=== PATIENT | female | born 1935 | race Caucasian/White ===

== ENCOUNTER → 2024-07-15 10:02 | Outpatient (REF) | payer OTHER, SELFPAY | LOC: HWWDC 10:02 | PROVIDERS: ATTENDING PHYSICIAN Family Medicine | DX: Z12.31 Encounter for screening mammogram for malignant neoplasm of breast (principal) | CPT/HCPCS: 77063; 77067 ==

== ENCOUNTER 2024-11-25 09:14 | Observation (INO) | payer OTHER, SELFPAY ==
[2024-11-25] VITALS (16 sets, daily range): BP systolic 132–184; BP diastolic 79–107; PULSE 80–132; O2SAT 96–97; BMI 34.7
[2024-11-25 00:45] LABS: % Basophils 0.7 % (0-2); % Eosinophils 3.4 % (0-6); % Immature Granulocytes 0.2 % (0-0.5); % Lymphocytes 32.9 % (20.5-51.1); % Monocytes 9.7 % (1.7-9.3); % Neutrophils 53.1 % (42.2-75.2); Absolute Basophils 0.1 10^3/uL (0-0.2); Absolute Eosinophils 0.3 10^3/uL (0-0.7); Absolute Lymphocytes 2.9 10^3/uL (1.2-3.4); Absolute Monocytes 0.9 10^3/uL (0.1-0.6); Absolute Neutrophils 4.6 10^3/uL (1.4-6.5); Hematocrit 40.2 % (37.0-47.0); Hemoglobin 13.4 g/dL (12.0-16.0); Mean Corp Hgb Conc. 33.3 g/dL (33.0-37.0); Mean Corpuscular Hgb 28.8 pg (27.0-31.0); Mean Corpuscular Volume 86.5 fL (81.0-99.0); Mean Platelet Volume 10.9 fL (7.4-10.4); Nucleated Red Blood Cells % 0 %; Platelet Count 302 10^3/uL (130-400); Red Blood Cell Count 4.65 10^6/uL (4.20-5.40); Red Cell Dist. Width 13.6 % (11.5-14.5); White Blood Cell Count 8.7 10^3/uL (4.8-10.8)
[2024-11-25 00:56] LABS: ALT (SGPT) 23 U/L (0-35); AST (SGOT) 23 U/L (14-36); Albumin 3.9 g/dl (3.5-5.0); Alkaline Phosphatase 70 U/L (38-126); Blood Urea Nitrogen 13 mg/dl (7-17); Calcium 9.1 mg/dl (8.4-10.2); Carbon Dioxide 26 mmol/L (22-30); Chloride 100 mmol/L (98-107); Estimated Creatinine Clearance 78 ml/min; Glucose 164 mg/dl (70-99); Sodium 132 mmol/L (135-145); Total Bilirubin 0.4 mg/dl (0.2-1.3); eGFR > 60.00
[2024-11-25 01:00] LABS: COVID-19 Antigen Negative (Negative)
--- NOTE | 2024-11-25 04:17 | ED.GENMED ---
History of Present Illness
General
Chief Complaint: Dizziness
Source: patient, spouse and family
Exam Limitations: none
Time Seen by Provider: 11/25/24 04:08
Nursing documentation reviewed up to this point in time: agreed with
History of Present Illness
History of Present Illness:
89-year-old female presents emergency department complaining of feeling sick and dizzy for the past week. She feels the room spinning and states she just feels sick.
Past History
Past History
ED Past Medical History: HTN, Hypothyroidism and Psychiatric
ED Past Surgical History: Cholecystectomy and Gynecological
Social History
Tobacco: Non-smoker
Alcohol: None
Drug: None
Personal:
Living: with family
Review of Systems
Review of Systems
Allergies reviewed?: Yes
All Other Systems: Not applicable
Constitutional: Reports no symptoms
EENT: Reports no symptoms
Respiratory: Reports no symptoms
Cardiac: Reports no symptoms
ABD/GI: Reports nausea and vomiting
: Reports no symptoms
Musculoskeletal: Reports no symptoms
Skin: Reports no symptoms
Neurological: Reports dizzy
Endocrine: Reports no symptoms
Hematologic/Lymphatic: Reports no symptoms
Psychiatric: Reports no symptoms
Phy Exam
Physical Exam
Physical Exam:
Physical Exam
General: Appears uncomfortable
Neck: supple. no meningeal signs. normal posterior pharynx
Heart: s1/s2 regular rate and rhythm, no murmur. equal radial
pulses.
HEENT: Pupils equal round reactive to light, EOMI
Lungs: no acute respiratory distress. clear bilaterally
Abdomen: normal bowel sounds. not tender. no CVAT
Neuro: alert and oriented. no focal neurological deficits cranial nerves II through XII intact
Skin: no rash
Psychiatric: well kept. interactive and cooperative
Extremities: no edema. no calf tenderness. negative homans. good distal pulses
Course
Orders/Labs/Results
Orders:
Orders
11/25/24
Electrocardiogram (*1) Stat
Reason for Study: Chest Pain
Comment: DONE
11/25/24 00:26
CMP [Comprehensive Metabolic Panel] Urgent
COVID-19 Antigen Urgent
Source: Nasal Swab
Complete Blood Count/With Diff Urgent
Influenza A+B Rapid Molecular Urgent
COLE Source: Nasal Swab
Specimen Description:
11/25/24 04:09
Vital Signs- Treatment ONCE
Frequency: Hourly
Comment: temperature
11/25/24 04:16
CT Head W/o Iv Contrast Urgent
Comment:
Reason For Exam: dizziness
EKG- Treatment ONCE
Meclizine [Antivert] 25 mg PO NOW STA
11/25/24 04:17
Electrocardiogram (*1) Urgent
Abnormal Lab Results
11/25/24
00:26
MPV 10.9 H fL
(7.4-10.4)
Absolute Monos (auto) 0.9 H 10^3/uL
(0.1-0.6)
Monocytes % 9.7 H %
(1.7-9.3)
Sodium 132 L mmol/L
(135-145)
Glucose 164 H mg/dl
(70-99)
11/25/24 00:26
11/25/24 00:26
Vital Signs
Initial and Last Documented VS:
Initial Vital Signs
Temp Pulse Resp BP Pulse Ox
97.6 F 94 16 184/91 97
11/25/24 00:06 11/25/24 00:06 11/25/24 00:06 11/25/24 00:06 11/25/24 00:06
Last Documented Vital Signs
Temp Pulse Resp BP Pulse Ox
97.6 F 88 12 145/79 97
11/25/24 00:06 11/25/24 04:30 11/25/24 04:30 11/25/24 03:00 11/25/24 04:30
MDM/Problems Addressed
Differential Diagnosis Includes:
Posterior CVA, vertigo, dysrhythmia
MDM/Problems Addressed:
89-year-old female with persistent dizziness, unable to ambulate. Admit to hospitalist for further evaluation.
*Radiology
Radiology exam reviewed: radiology read reviewed (CT head no acute 5)
*Pulse Oximetry
Patient hypoxic: no
*EKG
Interpreted by ED Provider?: Yes
EKG Intrepretation Date: 11/25/24
EKG Intrepretation Time: 04:33
Interpretation: normal
Comparison EKG: changes noted
Heart Rate: 87
Rate: normal
Rhythm: sinus
[place]: normal axis
Interval: normal interval
QRS Pattern: normal QRS
Ischemia: no ischemia
*Rug Designer Interpretation
Rate: normal
Interpretation: normal
Heart Rate: 88
Rhythm: sinus
*Critical Care Note
Total Time (30-74mins, 75-104mins- exclusive of procedures): Not Applicable
Patient Management
Social determinants of health affecting care: Living situation and Strong social support
Discussion with other providers: Hospitalist
Escalation/DeEscalation of care consider admission/obs:
admit indicated
ED Attending Note
-
Portions of this chart may have been created with voice recognition software.� Occasional wrong word or��sound alike� substitutions may have occurred due to the inherent limitations of voice recognition software.
Discharge Plan
Departure
Patient Disposition: Admit
Date of Disposition: 11/25/24
Time of Disposition: 06:45
Admit to: Telemetry
Presentation/result/management discussed w/ accepting MD/DO: Hospitalist
Patient with high blood pressure during this ER visit?: Yes
Condition: Fair
Discharge Problem:
Dizziness, Ambulatory dysfunction
Prescriptions:
No Action
levothyroxine 25 MCG tablet
PO DAILY
sertraline 25 MG tablet
50 mg PO DAILY
Referrals:
Rikki Thompson, DO [Family Provider] -
Interventions
Interventions:
*Risk Screen - Suicide Last Done: 11/25/24 00:06
*General Assessment Last Done: 11/25/24 00:06
*Neglect/Abuse Screening Last Done: 11/25/24 00:06
*ED- Fall Risk Assessment Last Done: 11/25/24 00:06
*ED COVID-19 Vaccine History Last Done: 11/25/24 00:06
ED- Neurological Assessment Last Done: 11/25/24 00:15
ED Swallowing Screen Last Done: 11/25/24 04:15
Discharge Date and Time
Print Language: GUINEAN
[2024-11-25] MEDS: ANTIVERT 25 MG PO (04:24)
--- NOTE | 2024-11-25 08:01 | PHANOTE ---
med rec note- patient does not know her medication and barely knows where she is. patient has family on file, left message for spouse to call back, patient pharmacy is current and patient ecw is old from 2022
[2024-11-25] MEDS: NSS 250 IV (08:10)
--- NOTE | 2024-11-25 08:11 | HPS.HSE ---
Family Physician
-
Family Physician: Rikki Thompson
Chief Complaint
-
vertigo
History of Present Illness
89yo F with PMHx of anxiety, DM, hypothyroidism, frequent headaches and neck pain (goes to chiropractor for that) came with worsening dizziness started 1 week before admisison and progressed to the point that patient cannot walk due to significant
symptoms. They appear mostly during position change with intermittent vertigo, not assosiated with ear pain, fullness or noise. Had mild cough 1 week ago after her was with a cold. No other significant symptoms reported.
Medical History
Past Medical History
Past Medical History: Reports Other (see HPI)
Past Surgical History: Reports None
Social History
Tobacco: Non-smoker
Alcohol: None
Drug: None
Family History
Family History: Not pertinent
Allergies / Home Medications
Allergies reflects when Allergies were last updated in [facility].
Home Medications with original date entered in [facility]
Allergy/Medication List:
Allergies
Allergy/AdvReac Type Severity Reaction Status Date / Time
cefprozil Allergy Unknown Verified 11/25/24 07:29
Cephalosporins Allergy Unknown Verified 11/25/24 07:29
erythromycin base Allergy Unknown Verified 11/25/24 07:29
guaifenesin Allergy Unknown Verified 11/25/24 07:29
phenylephrine Allergy Unknown Verified 11/25/24 07:29
phenylpropanolamine Allergy Unknown Verified 11/25/24 07:29
Sympathomimetic A Allergy Unknown Verified 11/25/24 07:29
*RETIRED-04/24/12
NOT.[id number] - Not Allergy Unknown Uncoded 11/25/24 07:29
Converted 5. See Text.
Home Medications
ergocalciferol (vitamin D2) 1,250 mcg (50,000 unit) capsule 1,250 mcg PO QWEEK 11/25/24
levothyroxine 25 mcg tablet (Synthroid) 25 mcg PO DAILY 11/25/24
sertraline 100 mg tablet 100 mg PO DAILY 11/25/24
Review of Systems
-
History Source: Patient
A 12 point ROS was completed and negative except as noted: Yes
Neurological: Reports Dizzy
Physical Exam
Vital Signs
Vital Signs
Temp Pulse Resp BP Pulse Ox
97.1 F 86 16 163/86 97
11/25/24 07:17 11/25/24 07:17 11/25/24 07:17 11/25/24 07:17 11/25/24 07:17
Physical Exam
General: Well Developed, Well Nourished and No Apparent Distress
HEENT: NormoCephalic, Anicteric and Moist mucous membranes
Respiratory: Clear; No Wheezes, Rales or Rhonchi
Cardiac: S1/S2 and Regular Rhythm; No Murmur
GI: Soft, Non Tender and Non Distended
Rectal: Brown
Genito-urinary: No costovertebral tender
Musculoskeletal: No Clubbing, No Cyanosis and No Edema
Skin: Warm
Neuro: Awake, Alert, Oriented and AO x 3
Psych: Calm and Apparent Dementia
Laboratory Results
-
11/25/24 00:26
11/25/24 00:26
Laboratory Results
Total Bilirubin 0.4 mg/dl (0.2-1.3) 11/25/24 00:26
AST 23 U/L (14-36) 11/25/24 00:26
ALT 23 U/L (0-35) 11/25/24 00:26
Alkaline Phosphatase 70 U/L (38-126) 11/25/24 00:26
Data Reviewed
-
CT Scan: Report Reviewed by me
Lab Data: Labs Reviewed by me
Impression/Plan
-
A/P:
#Dizziness, vertigo
r/o TIA/CVA/BPPV
Not a candidate for urgent intervention due to longevity of the symptoms
ASA, statin
Permissable hypertension, use labetalol for BP >180/105
Accuchecks and keep blood glucose in 140-180 range
CTA head/neck, MRI brain
check ortho VS
PT/OT
check UA
telemetry
Neurology eval
Meclizine
EKG SR without ST changes or TWI
#Recent acute URI
COVID-19 and Influenza PCR neg
check Chest XR
#Sinusitis
Head CT with severe maxillary sinusitis
check Procal, if elevated - start Abx, otherwise might beneft from steroids
#6 mm chronic lacunar infarct in the left thalamus
ASA. statin
#DM type 2 with unknown complications
Accucheks, Insulin SS, DM diet
#Anxiety d/o
#Hypothyroidism
check TSH
cont home meds
DVT ppx SCDs
Full code
I have spent at least 78min reviewing chart, test results, communication with consultantants and providing direct patient care
[2024-11-25 08:27] LABS: Urine Albumin Negative (Neg - Trace); Urine Bilirubin Negative (Negative); Urine Character Clear (Clear); Urine Glucose Negative (Negative); Urine Ketone Negative (Negative); Urine Leukocyte 1+ (Negative); Urine Nitrite Negative (Negative); Urine Occult Blood 1+ (Negative); Urine Urobilinogen Negative (Neg - 1+)
[2024-11-25 08:28] LABS: Urine Color Straw
[2024-11-25] MEDS: ASPIRIN 325 MG PO (08:31)
[2024-11-25 08:38] LABS: Urine Squamous Cell >30 /LPF (Few)
[2024-11-25 08:39] LABS: Urine Bacteria Few (Negative); Urine Red Blood Cell 0-2 /HPF (0-2); Urine White Cell 0-2 /HPF (0-5)
--- NOTE | 2024-11-25 10:15 | CON.NEURO4 ---
Addendum entered and electronically signed by Dimitrios Strange MD 11/25/24 14:17:
Studies reviewed.
I have personally examined the patient. I reviewed and agree with the WRAPPER OPERATOR's Note.
My addenda:
Awake, alert, interactive. No acute distress.
Speech intact. Patient is nearly obsessed regarding obtaining food, easily distracted
Follows 2-step requests w/o difficulty. No tremor.
Extra-ocular movements grossly intact.
Facial movements full and symmetric. Hearing intact to normal conversational volume.
Normal UE movements bilaterally.
Neck: full ROM.
Chest: no dyspnea
Heart: no JVD
Ext: (-) Clubbing, (-) Cyanosis, (-) Edema
IMPRESSIONS/RECOMMENDATIONS:
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
Check orthostatic blood pressures
Therapy evaluations and treatment
Would continue the patient currently on aspirin for now
Follow lipid profile
Continue medications for control of her depression
We will follow MRI of brain results
D/W patient
Will continue to follow patient.
Original Note:
Documented by User: Darya Beck NP 11/25/24 11:33
Consultation - Neurology 4
-
CONSULTING PHYSICIAN: Dimitrios Strange MD
REFERRING PHYSICIAN: Hospitalists/Dr. Moralez
DICTATED BY: JAVIER Stubbs
DATE/TIME OF REQUEST: 11/25/24
DATE/TIME OF CONSULTATION: 11/25/24
Reason for Consultation: Dizziness
History of Present Illness:
This is a 89-year-old right-handed female who has presented to the hospital on 11/25/24 with report of dizziness starting one week ago. Patient has been previously followed by our Neurology service as an outpatient for cognitive impairment.
Cognitive workup consisting of Neurotrax testing was suggestive of a pseudodementia due to depression vs mild cognitive impairment. She was encouraged to increase her sertraline dose and take donepezil in the past but refused. She is now followed by
a neurologist at [facility]. Patient is currently very upset that she has not had anything to eat since she came to the hospital overnight, and is very limited with providing answers to questions so most of this HPI is obtained from medical
records. Patient has had a cough and her has had a cold for one week. She started feeling dizzy about one week ago and this has progressed now to the point of not being able to walk. She is unable to describe the dizzy sensation but notes
that it mostly happens when she tries to turn her head or move, and it just feels 'awful.' She denies any headache, vision changes, speech/swallow difficulty, tinnitus, ear fullness/pain, vomiting, numbness, focal weakness, chest pain, palpitations,
and shortness of breath. CT Head was obtained on arrival and demonstrates an old left thalamic infarct that was not on previous imaging from 2019. She was not taking any blood thinning medications.
Past Medical History: HTN, hypothyroidism, NIDDM, headache, chronic neck pain, anxiety, depression
Surgical History: Cholecystectomy, tonsillectomy, b/l cataract resection, hysterectomy
Family History: Reviewed and noncontributory.
Social History: Denies tobacco, alcohol, and illicit drug use.
Allergies: See below.
Home Medications: See below.
Review of Symptoms:
Patient denies any fever, headache, chest pain, shortness of breath, GI or symptoms.
�Per the HPI.�All systems are reviewed negative except above.
Physical Exam:
The patient is afebrile, abdomen is nondistended, breathing is unlabored, skin is warm and dry, no edema.
NIH Stroke Scale:
I performed the NIH stroke scale on the patient on 11/25/24 at 1015. The patient scored 0 points on the NIH stroke scale assessment, which were assigned as follows: See below.
Neurologic Examination:
The patient is awake, alert and oriented x 3. She is able to follow commands and answer some questions appropriately. There is no aphasia or dysarthria. On cranial nerve assessment, pupils are 3 mm bilateral, round and reactive to light and
accommodation. Visual ramos are full. Extraocular movements are intact. No nystagmus noted. Facial sensations are intact and bilaterally symmetrical, there is no facial asymmetry. Hearing is diminished bilaterally to finger rub. Tongue palate and
uvula are midline. Sternocleidomastoid strengths are full bilaterally. Motor strengths are 5/5 bilateral upper and lower extremities on medical research [place] scale. There is no drift or involuntary movement noted. Deep tendon reflexes are 1+
bilateral upper and lower extremities and Babinski is absent bilaterally. There was no extinction noted on double simultaneous stimulation. Coordination is intact by finger to nose bilaterally.
Lab Results: See below.
Neuro Imaging:
1. CT Head 11/25/24: SEVERE ACUTE LEFT MAXILLARY SINUSITIS. Severe white matter leukoaraiosis in both cerebral hemispheres. 6 mm chronic lacunar infarct in the left thalamus. Moderate bilateral temporal lobe volume loss.
2. CTA Head/Neck 11/25/24: No CTA evidence for stenosis or occlusion in either internal carotid artery. Severe tortuosity of the mid cervical segment of the left internal carotid artery with 2 acute angle turns. Severe tortuosity of the proximal
right vertebral artery. 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 No CTA evidence for vertebral artery stenosis or occlusion. Moderate to severe discogenic degenerative disease at C3/C4, C4/C5, C5/C6, and C6/C7.
SEVERE ACUTE LEFT MAXILLARY SINUSITIS. Severe white matter leukoaraiosis in both cerebral hemispheres. Moderate bilateral temporal lobe volume loss. Moderate hypoplasia of the distal cervical segment of the right vertebral artery distal to the
origin of the right PICA. Diagnostic possibilities are (1) congenital hypoplasia or (2) right vertebral artery dissection. No CTA evidence for stenosis or occlusion in the left vertebral artery, basilar artery, or posterior cerebral arteries. Mild
calcific atherosclerotic plaque in both intracranial internal carotid arteries. Tiny 2 mm saccular aneurysm protruding medially from the terminal communicating segment of the left internal carotid artery.
Differentials for the patient's presentation include:
1. Dizziness; etiology likely a peripheral vertigo syndrome in the setting of sinusitis vs vertiginous migraine, though less likely given patient does not report a headache. CT head demonstrates an old left thalamic infarct that is new since CT
head imaging from 2019; cannot entirely exclude stroke producing acute symptoms.
Patient has the following risk factors for their symptoms: sinusitis, old stroke on CT head imaging, age
IV Tenecteplase/IAT candidacy: Not a candidate due to outside of time window.
Recommendations:
-Continue aspirin 81mg daily indefinitely. If MRI brain demonstrates an acute stroke, will likely add clopidogrel for 21 days.
-Goal normotension given symptom onset was one week ago.
-Check orthostatic vital signs.
-Physical therapy evaluation.
-MRI brain noncontrast pending.
-PRN meclizine for symptom relief if this helps.
-Goal normoglycemia, hbA1c pending.
-LDL goal <70. LDL is 86. Continue newly initiated atorvastatin 40mg daily.
-Checking blood work for metabolic abnormalities, see orders.
-Provide patient with a stroke education packet.
-DVT prophylaxis.
-Will follow pending results.
Discussed patient care with: Dr. Strange, the patient
Vital Signs and Labs
-
Vital Signs and Labs:
Vital Signs
Temp Pulse Resp BP Pulse Ox
97.1 F 89 13 163/86 98
11/25/24 07:17 11/25/24 08:30 11/25/24 08:30 11/25/24 07:17 11/25/24 08:30
Lab Results
11/25/24 00:26
11/25/24 00:26
Sodium 132 mmol/L (135-145) L 11/25/24 00:26
Potassium 4.0 mmol/L (3.5-5.1) 11/25/24 00:26
BUN 13 mg/dl (7-17) 11/25/24 00:26
Glucose 164 mg/dl (70-99) H 11/25/24 00:26
Calcium 9.1 mg/dl (8.4-10.2) 11/25/24 00:26
Medications
-
Home Medications
�Medication �Instructions �Recorded
ergocalciferol (vitamin D2) 1,250 1,250 mcg PO QWEEK 11/25/24
mcg (50,000 unit) capsule
levothyroxine 25 mcg tablet 25 mcg PO DAILY 11/25/24
(Synthroid)
sertraline 100 mg tablet 100 mg PO DAILY 11/25/24
NIH Stroke Score
Subsequent NIH Scale
Date of Subsequent NIH Scale: 11/25/24
Time of Subsequent NIH Scale: 10:15
NIH Stroke Score
Level of Consciousness: 0 - Alert
LOC Questions: 0-Answers both correctly
LOC Commands: 0-Performs both correctly
Best Horizontal Gaze: 0-Normal
Visual Ramos: 0=Normal, no visual loss
Facial Palsy: 0=Normal, symmetrical
Motor - Right Arm: 0=No drift 10 seconds
Motor - Left Arm: 0=No drift 10 seconds
Motor - Right Le-No drift 5 seconds
Motor - Left Le-No drift 5 seconds
Limb Ataxia: 0-Absent
Sensation: 0-Normal
Best Language: 0-No aphasia
Dysarthria: 0-Normal
Extinction and Inattention: 0-No abnormality
Total Score:: 0
Modified Bradford (mRS) Score
Modified Chelsey Scale (mRS): Moderately severe disability. Unable to attend to bodily needs/walk.
Score: 4
Alteplase Contraindication
Inclusion and Exclusion criteria reviewed: Yes
Reasons for NON-Tx with Thrombolytics ABSOLUTE Exclusions: Greater than 4.5 hrs from onset of sxs
IAT Contraindications: NIHSS < 6
Allergies
-
Allergies
Allergy/AdvReac Type Severity Reaction Status Date / Time
cefprozil Allergy Unknown Verified 11/25/24 07:29
Cephalosporins Allergy Unknown Verified 11/25/24 07:29
erythromycin base Allergy Unknown Verified 11/25/24 07:29
guaifenesin Allergy Unknown Verified 11/25/24 07:29
phenylephrine Allergy Unknown Verified 11/25/24 07:29
phenylpropanolamine Allergy Unknown Verified 11/25/24 07:29
Sympathomimetic A Allergy Unknown Verified 11/25/24 07:29
*RETIRED-04/24/12
NOT.[id number] - Not Allergy Unknown Uncoded 11/25/24 07:29
Converted 5. See Text.

Documented by User: Dimitrios Strange MD 11/25/24 14:14
NIH Stroke Score
NIH Stroke Score
Total Score:: 0
Modified Bradford (mRS) Score
Score: 4
[2024-11-25 10:30] LABS: Procalcitonin < 0.05 ng/ml (0.0-0.25)
[2024-11-25 11:01] LABS: HDL Cholesterol 49 mg/dl; LDL Cholesterol, Calculated 86 mg/dl; Total Cholesterol 172 mg/dl (50-199); Triglyceride 187 mg/dl (10-149); Very Low Density Lipoprotein 37 mg/dl (0-30)
[2024-11-25 11:14] LABS: Glucose - Point of Care 124 mg/dl (70-99)
[2024-11-25 12:16] LABS: Glycohemoglobin (HgbA1c) 6.5 % (4.0-5.6)
[2024-11-25 12:36] LABS: TSH Reflex To Free T4 8.99 uIU/ml (0.47-4.68)
[2024-11-25 12:40] LABS: Ferritin 28.5 ng/ml (11.1-264.0)
[2024-11-25] MEDS: VIBRAMYCIN 100 MG PO ×2 (12:43→19:43)
[2024-11-25] MEDS: DELTASONE 40 MG PO (12:43)
[2024-11-25 13:11] LABS: Folate > 20.0 ng/ml (2.76-20); Vitamin B12 678 pg/ml (239-931)
[2024-11-25] MEDS: ZOLOFT 50 MG PO (15:17)
[2024-11-25 15:53] LABS: Glucose - Point of Care 164 mg/dl (70-99)
[2024-11-25] MEDS: NSS (PRESERVATIVE FREE) 0.125 ML IV (17:01)
[2024-11-25] MEDS: ATIVAN 0.25 MG IV (17:02)
[2024-11-25] MEDS: LIPITOR 40 MG PO (17:03)
[2024-11-25 21:42] LABS: Glucose - Point of Care 155 mg/dl (70-99)
[2024-11-26 04:25] VITALS: BP 127/81
--- NOTE | 2024-11-26 04:25 | DOWNTIME ---
There was a [employer]ue Maker Downtime on 11/26/2024 from 0100 to 11/27/2023 at 0420 . Downtime documentation of patient's care, including medication administrations, has been reconciled in the electronic record per guidelines. Refer to the
patient's paper chart under the miscellaneous tab to see printed paper medication records and downtime forms.
[2024-11-26 07:03] LABS: Glucose - Point of Care 118 mg/dl (70-99)
[2024-11-26 07:37] VITALS: BP 138/85
[2024-11-26] MEDS: VIBRAMYCIN 100 MG PO (07:59)
[2024-11-26] MEDS: DELTASONE 40 MG PO (07:59)
[2024-11-26] MEDS: ASPIR LOW (ENTERIC COATED) 81 MG PO (07:59)
[2024-11-26 08:40] VITALS: BP 125/80; BP 138/85; PULSE 110; PULSE 98
[2024-11-26 10:06] LABS: Hematocrit 40.4 % (37.0-47.0); Hemoglobin 13.8 g/dL (12.0-16.0); Mean Corp Hgb Conc. 34.2 g/dL (33.0-37.0); Mean Corpuscular Hgb 29.3 pg (27.0-31.0); Mean Corpuscular Volume 85.8 fL (81.0-99.0); Mean Platelet Volume 10.9 fL (7.4-10.4); Platelet Count 326 10^3/uL (130-400); Red Blood Cell Count 4.71 10^6/uL (4.20-5.40); Red Cell Dist. Width 13.7 % (11.5-14.5); White Blood Cell Count 12.4 10^3/uL (4.8-10.8)
--- NOTE | 2024-11-26 10:19 | W.PN.HOSP.TC ---
Today's Communication/Plan
-
dc
Assessment / Plan
Assessment / Plan
89yo F with PMHx of anxiety, DM, hypothyroidism, frequent headaches and neck pain (goes to chiropractor for that) came with worsening dizziness started 1 week before admisison and progressed to the point that patient cannot walk due to significant
symptoms. They appear mostly during position change with intermittent vertigo, not assosiated with ear pain, fullness or noise. Had mild cough 1 week ago after her was with a cold. No other significant symptoms reported. Found significant
acute L maxillary sinusisti, that most likely caused exacerbation of chronic BPPV. Old strokes and 2mm Saccular aneurism on CTA. Started on ASA, Lipitor, Doxy and steroids. ENT and NeuroSx as outpatient - discussed with and he verbalzed
understanding of the instructions. DM, but patient declined Metformin previously with PCP. Started Amlodipine for improved BP mgmt.
Medcially stableto d/c - recommeded rehb, but wants to take her hjome - patient needed moderate assistance to ambulate 15 feet, which was discussed with .
A/P:
#acute on chronic dizziness 2/2 L maxillary sinusitis with BPPV
Docy, Prednisone, outpatient ENT
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
#hypoplasia of the right vertebral artery
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
#2 mm saccular aneurysm
MRI Brain in 1 year - neuroSx referral
#Anxiety d/o
#Hypothyroidism
Synthroid increased - rechck TSH in 2-3 weeks with family doctor
#Essential HTN
start amlodipine
#DM type 2 with circulatory complications
declined metformin
DM diet
#Pseudodementia
cont to follow with Dr. Martinez
DVt ppx SCDs
Full code
Anticipated Discharge: Within 24 hours
Subjective/Interval History
-
Date of Service: November 26, 2024
Objective Data
-
Labs:
Laboratory Results
11/26/24
09:36
WBC 12.4 H
Hgb 13.8
Hct 40.4
Plt Count 326
Sodium Pending
Potassium Pending
Chloride Pending
Carbon Dioxide Pending
BUN Pending
Creatinine Pending
Glucose Pending
Calcium Pending
Total Bilirubin Pending
AST Pending
ALT Pending
Alkaline Phosphatase Pending
Vital Signs:
Vital Signs
Temp Pulse Resp BP Pulse Ox
98.1 F 98 20 138/85 93
11/26/24 07:37 11/26/24 07:37 11/26/24 07:37 11/26/24 07:37 11/26/24 07:37
I&O
11/25/24 11/26/24 11/27/24
06:59 06:59 06:59
Intake Total 1440 / 1440
Output Total 100 / 100
Balance 1340 / 1340
Review of Systems
-
History Source: Patient
All other systems: Reviewed and negative
Physical Exam
-
General: No Apparent Distress
Respiratory: Clear to Auscultation
Cardiac: Regular Rhythm
GI: Soft
Neuro: Awake, Alert, Oriented and AO x 3
Psych: Calm and Apparent Dementia
[2024-11-26 10:57] VITALS: BP 154/78
[2024-11-26 11:00] LABS: ALT (SGPT) 25 U/L (0-35); AST (SGOT) 24 U/L (14-36); Albumin 4.4 g/dl (3.5-5.0); Alkaline Phosphatase 70 U/L (38-126); Blood Urea Nitrogen 18 mg/dl (7-17); Calcium 9.3 mg/dl (8.4-10.2); Carbon Dioxide 29 mmol/L (22-30); Chloride 94 mmol/L (98-107); Estimated Creatinine Clearance 67 ml/min; Glucose 141 mg/dl (70-99); Potassium 3.8 mmol/L (3.5-5.1); Sodium 133 mmol/L (135-145); Total Bilirubin 0.8 mg/dl (0.2-1.3); Total Protein 7.4 g/dl (6.3-8.2); eGFR > 60.00
--- NOTE | 2024-11-26 11:06 | W.DCSUMMARY ---
Discharge Summary
Discharge Data
Date of Admission: 11/25/24
Date of Discharge: 11/26/24
-
Pending Results: No
Hospital Course
89yo F with PMHx of anxiety, DM, hypothyroidism, frequent headaches and neck pain (goes to chiropractor for that) came with worsening dizziness started 1 week before admisison and progressed to the point that patient cannot walk due to significant
symptoms. They appear mostly during position change with intermittent vertigo, not assosiated with ear pain, fullness or noise. Had mild cough 1 week ago after her was with a cold. No other significant symptoms reported. Found significant
acute L maxillary sinusisti, that most likely caused exacerbation of chronic BPPV. Old strokes and 2mm Saccular aneurism on CTA. Started on ASA, Lipitor, Doxy and steroids. ENT and NeuroSx as outpatient - discussed with and he verbalzed
understanding of the instructions. DM, but patient declined Metformin previously with PCP. Started Amlodipine for improved BP mgmt.
Medically stable to d/c - recommended rehb, but wants to take her hjome - patient needed moderate assistance to ambulate 15 feet, which was discussed with .
I have spent at least 38min preparing d/c
Patient was managed for:
#acute on chronic dizziness 2/2 L maxillary sinusitis with BPPV
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
#hypoplasia of the right vertebral artery
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
#2 mm saccular aneurysm
#Anxiety d/o
#Hypothyroidism
#Essential HTN
#DM type 2 with circulatory complications
#Pseudodementia
Discharge Plan
-
Patient Disposition: Home with Home Care
Discharge Diagnosis/Procedures: Sinusitis
Referrals:
Kalia Sebastian MD [Active] - in two to three weeks (Chronic dizziness, sinusitis)
Rikki Thompson DO [Family Provider] - in less than 1 week (Follow up blood pressure management and repeat thyroid function test in 2-3 weeks )
Additional Discharge Medication Instructions: Synthroid increased. Use Meclizine for dizziness PRN, Added Amlodipine, baby aspirin and Lipitor
Prescriptions:
New
aspirin 81 mg Tablet,Delayed Release (Dr/Ec)
81 mg PO DAILY Qty: 30 0RF
meclizine 25 mg Tablet
25 mg PO Q8HPRN PRN (Reason: dizziness) Qty: 30 0RF
atorvastatin 40 mg Tablet
40 mg PO QPM Qty: 30 0RF
doxycycline hyclate 100 mg Capsule
100 mg PO Q12 Qty: 12 0RF
amlodipine 2.5 mg Tablet
2.5 mg PO BID Qty: 30 0RF
levothyroxine 25 mcg Tablet
37.5 mcg PO DAILY@0600 Qty: 30 0RF
prednisone 10 mg Tablet
See Rx Instructions .ROUTE .COMPLEX Qty: 30 0RF
Rx Instructions:
Take By Mouth:
40 mg daily x3 days, 30 mg daily x3 days,
20 mg daily x3 days, 10 mg daily x3 days.
Continued
sertraline 100 mg Tablet
50 mg PO DAILY
ergocalciferol (vitamin D2) 1,250 mcg (50,000 unit) Capsule
1,250 mcg PO QWEEK
Discontinued
levothyroxine [Synthroid] 25 mcg Tablet
25 mcg PO DAILY
Discharge Orders:
Discharge Patient (As Directed); Ordered 11/26/24
Ordered By: Merritt Moralez
Discharge Date and Time
Print Language: LIBYAN
[2024-11-26 11:13] LABS: Glucose - Point of Care 193 mg/dl (70-99)
--- NOTE | 2024-11-26 11:59 | CM ---
CM reviewed chart, patient for discharge today, call to patients spouse, Gianni, to complete initial assessment. Patient resides with spouse in a multiple story home, stays on first floor, five steps to enter. Patient has a cane and RW, denies
VN/SNF history. Patient PCP Dr. Thompson, pharmacy [facility]. Spouse aware of PT recommendation of SNF, reports patient will not be agreeable, agreeable to VN services, referral to [facility].
Gianni reports he is coming to hospital with his son to provide transportation home. DAVILA form reviewed, agreeable to discharge with VN services, placed in chart. CM will continue to follow for all discharge planning needs.
Plan; home with spouse, [facility]
--- NOTE | 2024-11-26 12:06 | VNURNOTE ---
Addendum entered by Candida Mccoy RN 11/26/24 12:09:
[facility] referral placed in [facility]. Patient w/confusion.
Original Note:
Home Health Liaison met with patient at bedside to discuss [facility] nurse/therapy, visits, schedule and homebound status. Patient not agreeable and stated she will just see her family DrLarissa Called patient's spouse- no answer, left a message. Also
reached out to patient's son - no answer, left a message. No [facility] referral placed yet.
--- NOTE | 2024-11-26 14:08 | W.PN.NEURO.1 ---
Today's Communication / Plan
-
Continue to follow orthostatic blood pressures, even as outpatient
Therapy evaluations and treatment
Would continue the patient on aspirin
Neuro Assessment/Plan
Assessment
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
Most likely dizziness is due to orthostasis, not completely demonstrated by limited testing during hospitalization
Plan
Continue to follow orthostatic blood pressures, even as outpatient
Therapy evaluations and treatment
Would continue the patient on aspirin
Follow lipid profile
Continue medications for control of her depression
Will follow as needed
Subjective/Objective
Subjective Data
Date of Service: November 26, 2024
Objective Data
Vital Signs
Temp Pulse Resp BP Pulse Ox
36.8 C 106 20 154/78 99
11/26/24 10:57 11/26/24 10:57 11/26/24 10:57 11/26/24 10:57 11/26/24 10:57
Lab Results
11/26/24 09:36
11/26/24 09:36
Sodium 133 mmol/L (135-145) L 11/26/24 09:36
Potassium 3.8 mmol/L (3.5-5.1) 11/26/24 09:36
BUN 18 mg/dl (7-17) H 11/26/24 09:36
Glucose 141 mg/dl (70-99) H 11/26/24 09:36
Calcium 9.3 mg/dl (8.4-10.2) 11/26/24 09:36
LDL Cholesterol, Calc 86 mg/dl 11/25/24 00:26
Vitamin B12 678 pg/ml (239-931) 11/25/24 00:26
Patient Allergies
cefprozil Allergy (Verified 11/25/24 07:29)
Unknown
Cephalosporins Allergy (Verified 11/25/24 07:29)
Unknown
erythromycin base Allergy (Verified 11/25/24 07:29)
Unknown
guaifenesin Allergy (Verified 11/25/24 07:29)
Unknown
phenylephrine Allergy (Verified 11/25/24 07:29)
Unknown
phenylpropanolamine Allergy (Verified 11/25/24 07:29)
Unknown
Sympathomimetic A *RETIRED-04/24/12 Allergy (Verified 11/25/24 07:29)
Unknown
[id number] - Not Converted 5. See Text. Allergy (Uncoded 11/25/24 07:29)
Unknown
Data Reviewed
-
CT-A: Report Reviewed
MRI Head: Report Reviewed
Labs: Report Reviewed
Reviewed with: Physician
Old Records: Summarized
== END 2024-11-26 14:22 | disposition home health service (06) ==
LOC: 4 WEST ACU 09:14
PROVIDERS: ADMITTING PHYSICIAN Internal Medicine; CONSULT PHYSICIAN Psychiatry & Neurology Neurology; EMERGENCY PHYSICIAN Emergency Medicine; FAMILY PHYSICIAN Family Medicine
DX: J32.0 Chronic maxillary sinusitis (principal); R07.9 Chest pain, unspecified; Z11.52 Encounter for screening for COVID-19; H81.10 Benign paroxysmal vertigo, unspecified ear; R26.2 Difficulty in walking, not elsewhere classified; I10 Essential (primary) hypertension; Z86.73 Personal history of transient ischemic attack (TIA), and cerebral infarction without residual deficits; F41.9 Anxiety disorder, unspecified; E03.9 Hypothyroidism, unspecified; Z79.82 Long term (current) use of aspirin; F32.A Depression, unspecified; E11.59 Type 2 diabetes mellitus with other circulatory complications; I70.90 Unspecified atherosclerosis; J01.00 Acute maxillary sinusitis, unspecified; K44.9 Diaphragmatic hernia without obstruction or gangrene; M50.31 Other cervical disc degeneration, high cervical region; M50.321 Other cervical disc degeneration at C4-C5 level
CPT/HCPCS: 70450; 70496; 70498; 70551; 71046; 80053; 80061; 81003; 81015; 82607; 82728; 82746; 82962; 83036; 83735; 84145; 84439; 84443; 85025; 85027; 87086; 87502; 87811; 92523; 93005; 97163; 97166; 99285; G0378; Q9967

== ENCOUNTER → 2025-08-07 11:47 | Outpatient (REF) | payer OTHER, SELFPAY | LOC: HWWDC 11:47 | PROVIDERS: ATTENDING PHYSICIAN Nurse Practitioner Family; FAMILY PHYSICIAN Family Medicine | DX: Z12.31 Encounter for screening mammogram for malignant neoplasm of breast (principal) | CPT/HCPCS: 77063; 77067 ==